=== PATIENT | male | born 1970 | race Caucasian/White ===

== ENCOUNTER 2021-09-06 18:46 | Emergency (ER) | payer OTHER ==
[~2021-09-06] VITALS: Ht 182.9 cm; Wt 70.3 kg
[2021-09-06] MEDS ORDERED: Roxicodone5 MG PO (23:48)
== END 2021-09-07 00:15 | disposition home or self-care (01) ==
LOC: ER 18:46
DX: T23.262A Burn of second degree of back of left hand, initial encounter (principal); T23.261A Burn of second degree of back of right hand, initial encounter; T20.16XA Burn of first degree of forehead and cheek, initial encounter; T20.14XA Burn of first degree of nose (septum), initial encounter; T31.0 Burns involving less than 10% of body surface; Z23 Encounter for immunization; X08.8XXA Exposure to other specified smoke, fire and flames, initial encounter
CPT/HCPCS: 16020; 90471; 90714; 96372; 96374; 96375; 99284-25; A9270; J1170; J1885; J2405

== ENCOUNTER → 2023-06-13 | Outpatient (CLI) | payer OTHER ==
[~2023-06-13] MED LIST: Roxicodone5 MG PO
== END | disposition home or self-care (01) ==
LOC: LAB 15:31 → LAB SHORT 15:31
DX: R30.0 Dysuria (principal)
CPT/HCPCS: 87086

== ENCOUNTER → 2023-09-09 | Outpatient (CLI) | payer OTHER | END | disposition home or self-care (01) | LOC: LAB 08:24 → LAB SHORT 08:24 | DX: R35.0 Frequency of micturition (principal); R39.15 Urgency of urination | CPT/HCPCS: 87077; 87086; 87186 ==

== ENCOUNTER → 2024-07-03 | Outpatient (CLI) | payer OTHER | END | disposition home or self-care (01) | LOC: PLD 09:02 → LAB SHORT 09:02 → LAB 09:02 | DX: D18.01 Hemangioma of skin and subcutaneous tissue (principal) | CPT/HCPCS: 88305 ==